=== PATIENT | male | born 1955 | race Caucasian/White ===

== ENCOUNTER 2017-11-27 03:01 | Emergency (ER) | payer OTHER ==
[~2017-11-27] VITALS: Ht 170.2 cm; Wt 104.3 kg
[2017-11-27 03:44] VITALS: BP 116/78
--- NOTE | 2017-11-27 03:53 | NUR ---
DICTIONARY EDITOR AT BEDSIDE
== END 2017-11-27 04:49 | disposition home or self-care (01) ==
LOC: ER 03:07
DX: R05 Cough (principal); E11.9 Type 2 diabetes mellitus without complications; F17.200 Nicotine dependence, unspecified, uncomplicated; Z88.2 Allergy status to sulfonamides; Z88.8 Allergy status to other drugs, medicaments and biological substances
CPT/HCPCS: 71045-TC; 87400; A4606; Z7610

== ENCOUNTER 2017-11-30 15:48 | Emergency (ER) | payer OTHER ==
[~2017-11-30] VITALS: Ht 172.7 cm; Wt 74.8 kg
--- NOTE | 2017-11-30 15:55 | NUR ---
BB SELF: SOB X 2 DAYS AFTER HAVING THE FLU. PATIENT IS A/OX 4. BREATHING EVEN AND UNLABORED. SATURATION 95% ON ROOM AIR. VSS. SAFETY AND COMFORT MEASURES IN PLACE. AWAITING MD ORDERS.
[2017-11-30] MEDS ORDERED: ALBUTEROL FS 2.5 MG/0.5 ML VIAL.NEB NEB ONE (16:00)
[2017-11-30] MEDS ORDERED: IPRATROPIUM NEB FS 0.5 MG/2.5 ML AMPUL.NEB NEB ONE (16:00)
--- NOTE | 2017-11-30 16:02 | NUR ---
SLPS AT BEDSIDE FOR BLOOD DRAW. EMT AT BEDSIDE FOR EKG.
--- NOTE | 2017-11-30 16:07 | NUR ---
RT AT BEDSIDE FOR BREATHING TREATMENT.
[2017-11-30 16:10] LABS: BASOPHILS % (AUTO) 0.5 % (0.0-2.0); EOSINOPHILS % (AUTO) 0.6 % (0.0-6.0); HEMATOCRIT 47 % (39-51); HEMOGLOBIN 16.7 g/dL (13.5-17.5); LYMPHOCYTES # (AUTO) 1.5 /CMM (0.8-4.8); LYMPHOCYTES % (AUTO) 26.9 % (20.0-44.0); MEAN CORPUSCULAR HEMOGLOBIN 31 PG (26.0-33.0); MEAN CORPUSCULAR HGB CONC 36 g/dl (31.0-36.0); MEAN CORPUSCULAR VOLUME 86 fL (80-96); MONOCYTES # (AUTO) 0.5 /CMM (0.1-1.30); MONOCYTES % (AUTO) 8.1 % (2.0-12.0); NEUTROPHILS # (AUTO) 3.6 /CMM (1.8-8.9); NEUTROPHILS % (AUTO) 63.9 % (43.0-81.0); PLATELET COUNT (AUTO) 208 /CMM (150-450); RDW COEFFICIENT OF VARIATION 12.1 (11.5-15.0); RED BLOOD CELL COUNT(AUTO) 5.44 MIL/uL (4.5-6.0); WHITE BLOOD COUNT (AUTO) 5.6 K/uL (4.3-11.0)
[2017-11-30] MEDS ORDERED: ALBUTEROL FS 2.5 MG/0.5 ML VIAL.NEB ONE (16:10)
[2017-11-30] MEDS ORDERED: IPRATROPIUM NEB FS 0.5 MG/2.5 ML AMPUL.NEB ONE (16:10)
[2017-11-30 16:21] LABS: CALCIUM, SERUM 8.8 mg/dL (8.5-10.1); CARBON DIOXIDE 26 mmol/L (21-32); CHLORIDE 100 mmol/L (98-107); CREATININE 0.9 mg/dL (0.6-1.3); GLUCOSE 125 mg/dL (74-106); POTASSIUM 4.4 mmol/L (3.5-5.1); SODIUM SERUM 136 mmol/L (136-145); UREA NITROGEN, BLOOD 18 mg/dL (7-18)
--- NOTE | 2017-11-30 16:22 | NUR ---
BOBBIN WINDER AT BEDSIDE.
[2017-11-30 16:28] LABS: TROPONIN I < 0.017 ng/mL (0.00-0.056)
[2017-11-30 16:33] LABS: B-TYPE NATRIURETIC PEPTIDE < 5 PG/ML (0-125)
[2017-11-30 17:31] VITALS: BP 117/82
== END 2017-11-30 17:32 | disposition home or self-care (01) ==
LOC: ER 15:50
DX: J06.9 Acute upper respiratory infection, unspecified (principal); R06.02 Shortness of breath; E11.9 Type 2 diabetes mellitus without complications; F17.200 Nicotine dependence, unspecified, uncomplicated; I50.9 Heart failure, unspecified; Z88.2 Allergy status to sulfonamides; Z88.8 Allergy status to other drugs, medicaments and biological substances
CPT/HCPCS: 36415; 71045-TC; 80048-TC; 83880; 84484-TC; 85025-TC; A4606; Z7610

== ENCOUNTER 2021-06-12 10:38 | Emergency (ER) | payer MEDICAID, OTHER ==
[~2021-06-12] VITALS: Ht 167.6 cm; Wt 106.1 kg
--- NOTE | 2021-06-12 10:50 | NUR ---
PT SELF PRESENTS TO ED AMBULATORY W. STEADY GAIT FEELING SHORT OF BREATH AND IS HAVING DIARRHEA FOR THE PAST 3-4 DAYS. PT IS NOT COVID VACCINATED. SATTING AT 92% ON RA. AFEBRILE DIRECTOR OF WEB MARKETING. GOWNED AND PLACED ON MONITOR. AWAITING MD MCKEON.
--- NOTE | 2021-06-12 11:32 | NUR ---
DR BECKWITH AT BEDSIDE FOR EVAL.
--- NOTE | 2021-06-12 11:48 | NUR ---
IV LINE STARTED. BLOOD DRAWN AND SENT TO LAB.
[2021-06-12 11:54] LABS: BASOPHILS % (AUTO) 0.8 % (0.0-2.0); EOSINOPHILS % (AUTO) 0.1 % (0.0-6.0); HEMATOCRIT 40 % (39-51); HEMOGLOBIN 14.1 g/dL (13.5-17.5); LYMPHOCYTES # (AUTO) 0.5 K/uL (0.8-4.8); LYMPHOCYTES % (AUTO) 11.6 % (20.0-44.0); MEAN CORPUSCULAR HGB CONC 35 g/dl (31.0-36.0); MEAN CORPUSCULAR VOLUME 89 fL (80-96); MONOCYTES # (AUTO) 0.5 K/uL (0.1-1.30); MONOCYTES % (AUTO) 10.5 % (2.0-12.0); NEUTROPHILS # (AUTO) 3.6 K/uL (1.8-8.9); PLATELET COUNT (AUTO) 147 K/uL (150-450); RED BLOOD CELL COUNT(AUTO) 4.55 MIL/uL (4.5-6.0); WHITE BLOOD COUNT (AUTO) 4.7 K/uL (4.3-11.0)
[2021-06-12 12:04] LABS: CALCIUM, SERUM 8.4 mg/dL (8.5-10.1); CARBON DIOXIDE 22 mmol/L (21-32); CHLORIDE 101 mmol/L (98-107); GLUCOSE 147 mg/dL (74-106); POTASSIUM 3.9 mmol/L (3.5-5.1); SODIUM SERUM 135 mmol/L (136-145); UREA NITROGEN, BLOOD 15 mg/dL (7-18)
[2021-06-12 12:15] LABS: ALANINE AMINOTRANSFERASE 23 U/L (12-78); ALBUMIN 3.7 g/dL (3.4-5.0); ALKALINE PHOSPHATASE 63 U/L (46-116); ASPARTATE AMINOTRANSFERASE 21 U/L (15-37); BILIRUBIN,TOTAL 0.3 mg/dL (0.2-1.0); TOTAL PROTEIN, SERUM 7.4 g/dL (6.4-8.2)
--- NOTE | 2021-06-12 12:16 | NUR ---
Patient does not wish to proceed with medical care recommended by Dr. Magana. Patient given information related to possible complications, up to and including , which could occur as a result of leaving the hospital at this time. Patient verbalizes understanding of risks involved due to leaving against medical advice. Patient has signed AMA form.
[2021-06-12 12:17] VITALS: BP 113/58
[2021-06-12 12:42] LABS: D-DIMER 3.49 mg/L(FEU (0.17-0.50)
[2021-06-12 12:59] LABS: CREATINE KINASE, TOTAL 135 U/L (39-308); FERRITIN 319 ng/mL (8-388)
[2021-06-12 13:14] LABS: C-REACTIVE PROTEIN 2.6 mg/dL (0.0-0.9)
== END 2021-06-12 12:18 | disposition left against medical advice (07) ==
LOC: ER 10:39
DX: R06.02 Shortness of breath (principal); R19.7 Diarrhea, unspecified; I10 Essential (primary) hypertension; E11.9 Type 2 diabetes mellitus without complications; F17.200 Nicotine dependence, unspecified, uncomplicated; Z88.2 Allergy status to sulfonamides
CPT/HCPCS: 36415; 71045-TC; 80053-TC; 82550-TC; 82728-TC; 83615-TC; 83880; 84484-TC; 85025-TC; 85378-TC; 85385-TC; 86140-TC

== ENCOUNTER 2022-11-03 12:40 | Emergency (ER) | payer MEDICARE, OTHER ==
[~2022-11-03] VITALS: Ht 175.3 cm; Wt 110.7 kg
--- NOTE | 2022-11-03 13:22 | NUR ---
URINE SAMPLE COLLECTED AND SENT TO LAB
[2022-11-03] MEDS ORDERED: LIDOCAINE 2% JEL UROJET 10 ML MM ONE ×2 (13:28→14:00)
--- NOTE | 2022-11-03 13:48 | NUR ---
REMOVED FR 24 ROSENBERG CATH AND CHANGED TO COUDE FR 18 URINARY CATHETER. PROCEDURE CHERI WELL.
[2022-11-03 14:13] LABS: BILIRUBIN,URINE NEGATIVE (NEGATIVE); COLOR,URINE DARK YELLOW (YELLOW); LEUKOCYTE ESTERASE ,URINE 1+ (NEGATIVE); NITRITE, URINE POSITIVE (NEGATIVE); PH,URINE 5.5 (5.0-8.0); PROTEIN,URINE 1+ mg/dl (NEGATIVE); UGLUCOSE NEGATIVE (NEGATIVE); UROBILINOGEN,URINE 0.2 EU/dL (0.2)
[2022-11-03 14:23] LABS: BACTERIA,URINE Few /HPF (None Seen); SQUAMOUS EPITHELIAL CELL,UR Few /HPF (None Seen)
[2022-11-03] MEDS ORDERED: CEFP200T14 PO (14:31)
[2022-11-03 15:13] VITALS: BP 128/84
--- NOTE | 2022-11-03 15:13 | NUR ---
Patient discharged to home in stable condition. Written and verbal after care instructions given. Patient verbalizes understanding of instruction.
== END 2022-11-03 15:14 | disposition home or self-care (01) ==
LOC: ER 12:40
DX: T83.038A Leakage of other urinary catheter, initial encounter (principal); N39.0 Urinary tract infection, site not specified; I10 Essential (primary) hypertension; E11.9 Type 2 diabetes mellitus without complications; Z88.2 Allergy status to sulfonamides; F17.200 Nicotine dependence, unspecified, uncomplicated
CPT/HCPCS: 99284; 51702; 87086; 81001; J3490

== ENCOUNTER 2023-01-09 21:33 | Emergency (ER) | payer MEDICARE, OTHER ==
[~2023-01-09] VITALS: Ht 175.3 cm; Wt 117.9 kg
[~2023-01-09 21:33] MED LIST: CEFP200T14 PO
--- NOTE | 2023-01-09 21:56 | NUR ---
CALLED TO TRIAGE NO RESPONSE
[2023-01-09 23:49] VITALS: BP 140/80
--- NOTE | 2023-01-09 23:53 | NUR ---
BIBS FOR DYSURIA AND URINARY FREQUENCY X 1 DAY. - HEMATURIA. HAD PROSTATE SX 2 MONTHS AGO. PATIENT IS AAOX4 ABLE TO MAKE NEEDS KNOWN. AMBULATORY. PLACED COMFORTABLY IN BED. VITALS CHECKED.
--- NOTE | 2023-01-09 23:53 | NUR ---
URINE SPECIMEN SENT TO LAB
[2023-01-10 00:16] LABS: BILIRUBIN,URINE NEGATIVE (NEGATIVE); COLOR,URINE AMBER (YELLOW); LEUKOCYTE ESTERASE ,URINE TRACE (NEGATIVE); NITRITE, URINE POSITIVE (NEGATIVE); PROTEIN,URINE 3+ mg/dl (NEGATIVE); UGLUCOSE 1+ mg/dL (NEGATIVE)
[2023-01-10] MEDS ORDERED: CIPR-262 PO ×2 (00:35→00:45)
[2023-01-10] MEDS ORDERED: CIPROFLOXACIN HCL 500 MG TABLET ONE (00:37)
--- NOTE | 2023-01-10 00:46 | NUR ---
Patient discharged to home in stable condition. Written and verbal after care instructions given. Patient verbalizes understanding of instruction.
[2023-01-10] MEDS ORDERED: CIPROFLOXACIN HCL 500 MG TABLET PO ONE (01:00)
--- NOTE | 2023-01-10 01:03 | NUR ---
Ibrahima van in [facility] - 01/10/23 at 0104 by VEGA Patient discharged to home in stable condition. Written and verbal after care instructions given. Patient verbalizes understanding of instruction.
[2023-01-10 01:12] LABS: BACTERIA,URINE Few /HPF (None Seen); RBC,URINE 21-50 /HPF (0-2); SQUAMOUS EPITHELIAL CELL,UR Few /HPF (None Seen)
== END 2023-01-10 00:46 | disposition home or self-care (01) ==
LOC: ER 21:39
DX: N39.0 Urinary tract infection, site not specified (principal); I10 Essential (primary) hypertension; E11.9 Type 2 diabetes mellitus without complications; F17.200 Nicotine dependence, unspecified, uncomplicated; Z88.2 Allergy status to sulfonamides; Z88.8 Allergy status to other drugs, medicaments and biological substances; Z60.2 Problems related to living alone; Z79.899 Other long term (current) drug therapy
CPT/HCPCS: 81001; 87086-TC

== ENCOUNTER 2023-06-25 07:33 | Emergency (ER) | payer MEDICARE, OTHER ==
[~2023-06-25] VITALS: Ht 175.3 cm; Wt 110.7 kg
[~2023-06-25 07:33] MED LIST changes: +CIPR-262 PO
[2023-06-25 07:41] VITALS: BP 118/66; TEMP 98.1; O2SAT 99
[2023-06-25] MEDS ORDERED: NEOM10DR11 LEFT EAR (08:30)
[2023-06-25] MEDS ORDERED: AMOX500T2 PO (08:30)
== END 2023-06-25 08:33 | disposition home or self-care (01) ==
LOC: ER 07:38
DX: H60.502 Unspecified acute noninfective otitis externa, left ear (principal); H66.92 Otitis media, unspecified, left ear; I10 Essential (primary) hypertension; E11.9 Type 2 diabetes mellitus without complications; Z88.2 Allergy status to sulfonamides; Z88.8 Allergy status to other drugs, medicaments and biological substances; Z60.2 Problems related to living alone

== ENCOUNTER 2024-05-15 06:49 | Emergency (ER) | payer MEDICARE, OTHER ==
[~2024-05-15] VITALS: Ht 170.2 cm; Wt 102.1 kg
[~2024-05-15 06:49] MED LIST changes: +AMOX500T2 PO; +NEOM10DR11 LEFT EAR
[2024-05-15] MEDS ORDERED: NEOM10DR11 LEFT EAR (07:31)
[2024-05-15 07:39] VITALS: BP 141/82; TEMP 98.6; O2SAT 98
== END 2024-05-15 07:39 | disposition home or self-care (01) ==
LOC: ER 06:54
DX: H60.502 Unspecified acute noninfective otitis externa, left ear (principal); I10 Essential (primary) hypertension; E11.9 Type 2 diabetes mellitus without complications; F17.200 Nicotine dependence, unspecified, uncomplicated; Z98.890 Other specified postprocedural states; Z79.899 Other long term (current) drug therapy; Z60.2 Problems related to living alone; Z88.2 Allergy status to sulfonamides; Z88.1 Allergy status to other antibiotic agents
CPT/HCPCS: 82962-TC

== ENCOUNTER 2025-07-18 08:10 | Emergency (ER) | payer MEDICARE, OTHER ==
[~2025-07-18] VITALS: Ht 167.6 cm; Wt 102.1 kg
[2025-07-18 08:45] VITALS: BP 132/87; TEMP 98.3; O2SAT 97
== END 2025-07-18 08:45 | disposition home or self-care (01) ==
LOC: ER 08:12
DX: I10 Essential (primary) hypertension (principal); E11.9 Type 2 diabetes mellitus without complications; F17.200 Nicotine dependence, unspecified, uncomplicated; Z79.899 Other long term (current) drug therapy; Z88.1 Allergy status to other antibiotic agents; Z88.2 Allergy status to sulfonamides; Z98.890 Other specified postprocedural states; Z60.2 Problems related to living alone